=== PATIENT | male | born 1960 | race African-American/Black ===

== ENCOUNTER 2023-11-25 10:20 | Emergency (ER) | payer SELFPAY ==
[~2023-11-25] VITALS: Ht 172.7 cm; Wt 70.5 kg
[2023-11-25 10:28] VITALS: O2SAT 99
[2023-11-25 10:56] LABS: BASOPHILS % 1.2 % (0.0-2.0); EOSINOPHILS % 7.3 % (0.0-5.0); HEMATOCRIT. 40.9 % (42.0-52.0); HEMOGLOBIN. 13.3 g/dL (14.0-18.0); MEAN CORPUSCULAR HEMOGLOBIN 30.1 pg (28.0-32.0); MEAN CORPUSCULAR HGB CONC 32.6 g/dL (31.0-37.0); MEAN CORPUSCULAR VOLUME 92.2 fL (80.0-94.0); MEAN PLATELET VOLUME 8.3 fl (7.4-10.4); MONOCYTES % 7.2 % (2.0-8.0); NEUTROPHILS % 49.3 % (40.0-76.0); PLATELET 313 x1000/uL (130-400); RED BLOOD CELL COUNT 4.43 mill/uL (4.7-6.1); RED CELL DISTRIBUTION WIDTH 15.2 % (11.6-14.6); WHITE BLOOD COUNT 4.3 x1000/uL (4.5-11.0)
[2023-11-25 11:08] VITALS: BP 139/95; PULSE 56; RESP 17; TEMP 98.1
[2023-11-25 11:09] LABS: ALANINE AMINOTRANSFERASE 15 IU/L (10-49); ALBUMIN 4.8 g/dL (3.2-4.8); ASPARTATE AMINOTRANSFERASE 16 IU/L (<34); BILIRUBIN TOTAL 0.3 mg/dL (0.1-1.0); CALCIUM 9.7 mg/dL (8.7-10.4); CARBON DIOXIDE 29 mEq/L (21-32); CHLORIDE 104 mEq/L (98-107); CREATININE 0.9 mg/dL (0.6-1.3); GLUCOSE 81 mg/dL (70-105); INR 1.1; PROTEIN TOTAL 7.7 g/dL (6.0-8.3); PROTHROMBIN TIME 11.9 sec (9.6-11.0); SODIUM 140 mEq/L (136-145); UREA NITROGEN BLOOD 12 mg/dL (9-23)
[2023-11-25 11:11] LABS: TROPONIN I HIGH SENSITIVITY < 4 ng/L (3.0-53)
[2023-11-25] MEDS ORDERED: FLUC200T PO (12:44)
== END 2023-11-25 13:13 | disposition home or self-care (01) ==
LOC: ER 10:20
DX: R00.2 Palpitations (principal); K80.80 Other cholelithiasis without obstruction; Z90.49 Acquired absence of other specified parts of digestive tract; Z98.890 Other specified postprocedural states
CPT/HCPCS: 80053; 83880; 85025; 85610; 84484; 36415; 71045; 93005; 99285; Z7610